=== PATIENT | male | born 1985 ===

== ENCOUNTER 2017-01-28 10:15 | Emergency (ER) | payer OTHER ==
[2017-01-28 10:17] VITALS: TEMP 97.9; O2SAT 100
[2017-01-28 10:18] VITALS: BMI 28.5
--- NOTE | 2017-01-28 10:34 | ED PDOC ---
Lower Extremity Pain/Injury Time Seen by Provider: 01/28/17 10:20 Chief Complaint (Nursing): Lower Extremity Problem/Injury Chief Complaint (Provider): Lower Extremity Problem/Injury History Per: Patient History/Exam Limitations: no limitations Onset/Duration Of Symptoms: Mins, Days Current Symptoms Are (Timing): Still Present Severity: Severe Additional Complaint(s): Patient is a 31 year old male who presents to ED for left ankle pain s/p fall this morning. Patient reports he slipped down 10 steps, pain to left ankle immediately following. Patient denies head injury, neck pain or LOC. Past Medical History Reviewed: Historical Data, Nursing Documentation, Vital Signs Vital Signs: Last Vital Signs Temp 97.9 F 01/28/17 10:17 Pulse 68 01/28/17 10:17 Resp BP 135/82 01/28/17 10:17 Pulse Ox 100 01/28/17 10:17 - Medical History PMH: No Chronic Diseases - Surgical History Surgical History: No Surg Hx - Family History Family History: States: Unknown Family Hx - Living Arrangements Living Arrangements: With Family - Home Medications Home Medications: Ambulatory Orders Medication Instructions Recorded Naproxen [Naprosyn] 500 mg PO BID PRN #15 tablet 01/28/17 oxyCODONE/Acetaminophen [Percocet 1 tab PO Q6H PRN #15 tab 01/28/17 5/325 mg Tab] - Allergies Allergies/Adverse Reactions: Allergies Allergy/AdvReac Type Severity Reaction Status Date / Time No Known Allergies Allergy Verified 09/20/14 12:09 Review of Systems Eyes: Negative for: Vision Change Cardiovascular: Negative for: Chest Pain Respiratory: Negative for: Shortness of Breath Musculoskeletal: Positive for: Foot Pain. Negative for: Neck Pain, Back Pain Neurological: Negative for: Weakness, Numbness, Headache, Dizziness Physical Exam - Reviewed Nursing Documentation Reviewed: Yes Vital Signs Reviewed: Yes - Physical Exam Appears: Positive for: Uncomfortable Head Exam: Positive for: ATRAUMATIC, NORMAL INSPECTION Skin: Positive for: Normal Color, Warm Eye Exam: Positive for: Normal appearance Neck: Positive for: Normal, Painless ROM, Supple Pulses-Dorsalis Pedis (L): 2+ Extremity: Positive for: Normal ROM, Deformity (Left lateral ankle with tenderness ), Other (Left knee and hip: Normal ROM ) Neurologic/Psych: Positive for: Alert, Oriented. Negative for: Motor/Sensory Deficits - ECG O2 Sat by Pulse Oximetry: 100 (RA) Pulse Ox Interpretation: Normal - Other Rad XR L foot X-Ray: Read By Radiologist (Spurring along the dorsal margin of the navicular.) XR L ankle X-Ray: Read By Radiologist (Nondisplaced oblique fracture of the distal fibula.) Medical Decision Making Medical Decision Making: Time: 1015 Initial impression: Ankle injury r/o fracture Initial plan: Code ortho called immediately -- Ankle/Foot Xray -- Morphine IV Pt evaluated by Podiatry. Pt given Rx Percocet, risk of opioid addiction discussed with patient. [place] [employer] reviewed, prescribe Hydrocodone-APAP #15 tabs on 09/19/16. Scribe Attestation: Documented by Amanda Stewart acting as a scribe for Olimpia Nichols MD MD Scribe Attestation: All medical record entries made by the Scribe were at my direction and personally dictated by me. I have reviewed the chart and agree that the record accurately reflects my personal performance of the history, physical exam, medical decision making, and the department course for this patient. I have also personally directed, reviewed, and agree with the discharge instructions and disposition. Disposition - Clinical Impression Clinical Impression: Fracture of left fibula - Disposition Referrals: Cleo Rodriguez DPM [Staff Provider] - Disposition: Routine/Home Disposition Time: 12:49 Condition: STABLE Prescriptions: Naproxen [Naprosyn] 500 mg PO BID PRN #15 tablet PRN Reason: Pain, Moderate (4-7) oxyCODONE/Acetaminophen [Percocet 5/325 mg Tab] 1 tab PO Q6H PRN #15 tab PRN Reason: Pain, Severe (8-10) Instructions: Ankle Fracture (ED)
--- NOTE | 2017-01-28 13:05 | RAD ---
PROCEDURE: Left Foot Radiographs. HISTORY: Fall, lateral ankle pain COMPARISON: None. FINDINGS: BONES: Normal. No fracture. Dorsal spur formation at the navicular. JOINTS: Normal. SOFT TISSUES: Normal. OTHER FINDINGS: None. IMPRESSION: Spurring along the dorsal margin of the navicular.
--- NOTE | 2017-01-28 13:07 | RAD ---
HISTORY: Fall, lateral ankle pain COMPARISON: No prior FINDINGS: BONES: Nondisplaced oblique fracture of the distal fibula. JOINTS: Normal. No osteoarthritis. SOFT TISSUE: Normal. OTHER FINDINGS: None . IMPRESSION: Nondisplaced oblique fracture of the distal fibula.
[2017-01-28 14:59] VITALS: BP 122/78; PULSE 78; RESP 16
== END 2017-01-28 12:40 | disposition home or self-care (01) ==
LOC: H.ER 10:15
DX: S82.402A Unspecified fracture of shaft of left fibula, initial encounter for closed fracture (principal); W10.9XXA Fall (on) (from) unspecified stairs and steps, initial encounter; Y92.89 Other specified places as the place of occurrence of the external cause
CPT/HCPCS: 29515; 73610; 73630; 99284; J2270

== ENCOUNTER 2018-11-07 09:09 | Emergency (ER) | payer OTHER, BC ==
[2018-11-07 09:11] VITALS: BMI 28.5
[2018-11-07] MEDS ORDERED: Sodium Chloride 0.9% 1,000 ML IV STA (09:55)
[2018-11-07 10:31] LABS: ABG ALLEN TEST YES; ARTERIAL BLOOD GAS HCO3 26.3 mmol/L (21-28); ARTERIAL BLOOD GAS HEMOGLOBIN 16.3 g/dL (11.7-17.4); ARTERIAL BLOOD GAS O2 CAPACITY 21.9 mL/dL (16-24); ARTERIAL BLOOD GAS O2 CONTENT 22.1 ML/dL (15-23); ARTERIAL BLOOD GAS O2 SAT 100.9 % (95-98); ARTERIAL BLOOD GAS PCO2 31 mm/Hg (35-45); ARTERIAL BLOOD GAS PO2 118 mm/Hg (80-100); ARTERIAL BLOOD GAS TCO2 25.2 mmol/L (22-28)
[2018-11-07 10:43] VITALS: RESP 17
[2018-11-07 10:59] LABS: BASO % 0.7 % (0.0-2.0); EOS # 0.1 K/uL (0.0-0.7); EOS % 2.2 % (0.0-4.0); HEMOGLOBIN 15.7 g/dL (12.0-18.0); LYMPH # 1.7 K/uL (1.0-4.3); LYMPH % 28.1 % (20.0-40.0); MEAN CELL VOLUME 90.5 fl (80.0-94.0); MEAN CORPUSCULAR HEMOGLOBIN 31.2 pg (27.0-31.0); MEAN CORPUSCULAR HGB CONC 34.5 g/dL (33.0-37.0); MEAN PLATELET VOLUME 7.6 fl (7.2-11.7); MONO % 16.1 % (0.0-10.0); NEUT # 3.1 K/uL (1.8-7.0); NEUT % 52.9 % (50.0-75.0); NRBC % 0.2 % (0.0-0.0); RBC 5.02 Mil/uL (4.40-5.90); RED CELL DISTRIBUTION WIDTH 12.7 % (11.5-14.5); WHITE BLOOD COUNT 5.9 K/uL (4.8-10.8)
[2018-11-07 11:00] LABS: ALB/GLOB RATIO 1.4 (1.0-2.1); ALBUMIN 4.5 g/dL (3.5-5.0); ALT/SGPT 43 U/L (21-72); AST/SGOT 43 U/L (17-59); BLOOD UREA NITROGEN 18 mg/dl (9-20); CALCIUM 9.8 mg/dL (8.4-10.2); GFR NON-AFRICAN AMERICAN > 60
--- NOTE | 2018-11-07 11:22 | ED PDOC ---
Syncope/Near Syncope/Dizziness Time Seen by Provider: 11/07/18 09:26 Chief Complaint (Nursing): Chemical Exposure Chief Complaint (Provider): Chemical Exposure History Per: Patient History/Exam Limitations: no limitations Onset/Duration Of Symptoms: Days (x1) Current Symptoms Are (Timing): Still Present Additional Complaint(s): 33 year old male presents to the emergency department for an evaluation of possible chemical inhalation this morning. 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 Initially, patient did not experience any symptoms but later informed that evidence had suspicion of drug or composed of a drug substance. Subsequently, patient felt dizziness and nausea but denies chest pain, shortness of breath, or headache. PCP: Dr. Avila Mckenzie Past Medical History Reviewed: Historical Data, Nursing Documentation, Vital Signs Vital Signs: Last Vital Signs Temp 98.3 F 11/07/18 09:12 Pulse 60 11/07/18 09:12 Resp 17 11/07/18 09:20 BP 136/74 11/07/18 09:12 Pulse Ox 99 11/07/18 09:12 - Medical History PMH: Arthritis (Psoriatic Arthritis) - Surgical History Surgical History: No Surg Hx - Family History Family History: States: Unknown Family Hx - Home Medications Home Medications: Ambulatory Orders Medication Instructions Recorded Meclizine [Meclizine*] 25 mg PO Q6 #15 tab 11/07/18 - Allergies Allergies/Adverse Reactions: Allergies Allergy/AdvReac Type Severity Reaction Status Date / Time No Known Allergies Allergy Verified 09/20/14 12:09 Review of Systems ROS Statement: Except As Marked, All Systems Reviewed And Found Negative Cardiovascular: Negative for: Chest Pain Respiratory: Negative for: Shortness of Breath Gastrointestinal: Positive for: Nausea Neurological: Positive for: Dizziness. Negative for: Headache Physical Exam - Reviewed Nursing Documentation Reviewed: Yes Vital Signs Reviewed: Yes - Physical Exam Appears: Positive for: Well, Non-toxic, No Acute Distress Head Exam: Positive for: ATRAUMATIC, NORMAL INSPECTION, NORMOCEPHALIC Skin: Positive for: Normal Color. Negative for: Rash Eye Exam: Positive for: Normal appearance, EOMI, PERRL ENT: Positive for: Normal ENT Inspection. Negative for: Sinus Pain/Drainage, Pharyngeal Erythema, Tonsillar Swelling Neck: Positive for: Normal, Supple Cardiovascular/Chest: Positive for: Regular Rate, Rhythm, Chest Non Tender Respiratory: Positive for: Normal Breath Sounds. 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 Negative for: Motor/Sensory Deficits, Aphasia - Laboratory Results Result Diagrams: 11/07/18 10:40 11/07/18 10:40 Lab Results: pCO2 31 mm/Hg (35-45) L 11/07/18 09:56 pO2 118 mm/Hg (80-100) H 11/07/18 09:56 HCO3 26.3 mmol/L (21-28) 11/07/18 09:56 ABG pH 7.50 (7.35-7.45) H 11/07/18 09:56 ABG Total CO2 25.2 mmol/L (22-28) 11/07/18 09:56 ABG O2 Saturation 100.9 % (95-98) H 11/07/18 09:56 ABG O2 Content 22.1 ML/dL (15-23) 11/07/18 09:56 ABG Base Excess 1.9 mmol/L (-2.0-3.0) 11/07/18 09:56 ABG Hemoglobin 16.3 g/dL (11.7-17.4) 11/07/18 09:56 ABG Carboxyhemoglobin 2.7 % (0.5-1.5) H 11/07/18 09:56 POC ABG HHb (Measured) -0.9 % (0.0-5.0) L 11/07/18 09:56 ABG Methemoglobin 2.3 % (0.0-3.0) 11/07/18 09:56 ABG O2 Capacity 21.9 mL/dL (16-24) 11/07/18 09:56 Chad Test Yes 11/07/18 09:56 A-a O2 Difference -7.0 mm/Hg 11/07/18 09:56 Hgb O2 Saturation 95.9 % (95.0-98.0) 11/07/18 09:56 FiO2 21.0 % 11/07/18 09:56 Total Bilirubin 0.6 mg/dl (0.2-1.3) 11/07/18 10:40 AST 43 U/L (17-59) 11/07/18 10:40 ALT 43 U/L (21-72) 11/07/18 10:40 Alkaline Phosphatase 82 U/L (38-126) 11/07/18 10:40 Total Protein 7.6 G/DL (6.3-8.2) 11/07/18 10:40 Albumin 4.5 g/dL (3.5-5.0) 11/07/18 10:40 Globulin 3.1 gm/dL (2.2-3.9) 11/07/18 10:40 Albumin/Globulin Ratio 1.4 (1.0-2.1) 11/07/18 10:40 - ECG ECG: Positive for: Interpreted By Me, Viewed By Me ECG Rhythm: Positive for: Normal QRS, Normal ST Segment, Sinus Rhythm, Sinus Bradycardia Rate: 57 O2 Sat by Pulse Oximetry: 99 (RA) Pulse Ox Interpretation: Normal - Progress Re-evaluation Time: 12:23 Condition: Re-examined, Improved Medical Decision Making Medical Decision Making: Initial Impression: exposure to wheezing Initial Plan: * Labs * EKG * IV fluids * Zofran 4mg IVP Scribe Attestation: Documented by Any Marquez, acting as a scribe for Oly Sheldon MD. Provider Scribe Attestation: All medical record entries made by the Scribe were at my direction and p ersonally dictated by me. I have reviewed the chart and agree that the record accurately reflects my personal performance of the history, physical exam, medical decision making, and the department course for this patient. I have also personally directed, reviewed, and agree with the discharge instructions and disposition. Disposition - Clinical Impression Clinical Impression: Dizziness, Exposure to chemical inhalation - Patient ED Disposition Is Patient to be Admitted: No Doctor Will See Patient In The: Office Counseled Patient/Family Regarding: Studies Performed, Diagnosis, Need For Followup - Disposition Disposition: Routine/Home Disposition Time: 12:24 Condition: IMPROVED Additional Instructions: GABY HE, thank you for letting us take care of you today. Your provider was Oly Sheldon MD and you were treated for DIZZINESS,EXPOSURE TO TOXIC CHEMICALS. The emergency medical care you received today was directed at your acute symptoms. If you were prescribed any medication, please fill it and take as directed. It may take several days for your symptoms to resolve. Return to the Emergency Department if your symptoms worsen, do not improve, or if you have any other problems. Please contact your doctor or call one of the physicians/clinics you have been referred to that are listed on the Patient Visit Information form that is included in your discharge packet. Bring any paperwork you were given at discharge with you along with any medications you are taking to your follow up visit. Our treatment cannot replace ongoing medical care by a primary care provider outside of the emergency department. Thank you for allowing the [facility] team to be part of your care today. If you had an X-Ray or CT scan: A Radiologist will review the ED reading if any change in treatment is needed we will contact you. If you had a blood, urine, or wound culture: It will take several days for the results, if any change in treatment is needed we will contact you. If you had an STI test: It will take 48 hours for the results. Please call after 1 week if you have not heard back. Prescriptions: Meclizine [Meclizine*] 25 mg PO Q6 #15 tab Instructions: Dizziness, Nonvertigo, (DC), Chemical Ingestion (DC) Forms: [facility] ED School/Work Excuse
[2018-11-07 11:51] LABS: PHENCYCLIDINE, UR NEGATIVE (NEGATIVE)
[2018-11-07 11:55] LABS: BARBITURATES, UR NEGATIVE (NEGATIVE); BENZODIAZEPINES, UR NEGATIVE (NEGATIVE); OPIATES, UR NEGATIVE (NEGATIVE)
[2018-11-07 13:05] VITALS: BP 107/62; PULSE 59; TEMP 98.1; O2SAT 97
--- NOTE | 2018-11-07 16:28 | CARD ---
APPROVED REPORT Date of service: 11/07/2018 EKG Measurement Heart [id number] <Conclusion> Sinus bradycardia Otherwise normal ECG
== END 2018-11-07 13:04 | disposition home or self-care (01) ==
LOC: H.ER 09:09
DX: Z77.098 Contact with and (suspected) exposure to other hazardous, chiefly nonmedicinal, chemicals (principal); Y99.0 Civilian activity done for income or pay
CPT/HCPCS: 36600; 80053; 80324; 80345; 80346; 80349; 80353; 80358; 80361; 82803; 83992; 85025; 93005; 96361; 96374; 99284; J2405; J7030